=== PATIENT | female | born 1955 | race Caucasian/White ===

== ENCOUNTER → 2024-10-27 10:03 | Outpatient (REF) | payer MEDICARE, BC, SELFPAY | LOC: HWWDC 10:03 | PROVIDERS: ATTENDING PHYSICIAN Nurse Practitioner Women's Health; FAMILY PHYSICIAN Family Medicine | DX: Z12.31 Encounter for screening mammogram for malignant neoplasm of breast (principal) | CPT/HCPCS: 77063; 77067 ==

== ENCOUNTER 2025-02-04 14:15 | Inpatient (IN) | payer MEDICARE, BC, SELFPAY ==
[2025-02-04 09:51] VITALS: BP 155/74
--- NOTE | 2025-02-04 10:55 | ED.GENMED ---
History of Present Illness
General
Chief Complaint: Back Pain
Source: patient
Time Seen by Provider: 02/04/25 10:46
Nursing documentation reviewed up to this point in time: agreed with
History of Present Illness
History of Present Illness:
69-year-old female with history, HLD, HTN presents for left flank pain. She states 2 nights ago it was 'really bad' and vomited twice than it subsided, yesterday the pain came back she put ice on her flank and the pain subsided, during the night
last night pain became worse again and she cannot seem to get rid of it, she took Tylenol this a.m. with no result. She states pain was 9/10, now it is 7/10. She denies fever or chills.
Past History
Past History
ED Past Medical History: HTN, Hypercholesterolemia and Other (Osteoporosis, seasonal allergies)
ED Past Surgical History: Gynecological (Myomectomy) and Orthopedic (Right wrist surgery)
Social History
Tobacco: Non-smoker
Alcohol: Occasional
Drug: None
Personal: Single
Living: alone
Employment: Employed
Family History
Family History: CAD; Negative Early CAD
Review of Systems
Review of Systems
Allergies reviewed?: Yes
All Other Systems: ROS reviewed and negative except as documented in HPI and ROS
Constitutional: Denies fever or chills
Respiratory: Denies trouble breathing
Cardiac: Denies chest pain
ABD/GI: Reports nausea and vomiting; Denies abdominal pain or diarrhea
: Reports flank pain (Left); Denies dysuria, frequency, difficulty voiding or urgency
Musculoskeletal: Reports no symptoms
Skin: Reports no symptoms
Neurological: Reports no symptoms
Phy Exam
Physical Exam
Physical Exam:
GENERAL: Mild distress due to left flank pain. A&Ox3.
CONSTITUTIONAL: Afebrile.
EYES: clear, conjunctivae normal
ENMT: moist mucus membranes, Pharynx nl
RESPIRATORY: Regular respirations, nonlabored, lungs clear.
CARDIOVASCULAR: Regular rate and rhythm, no murmurs, no rubs.
GI: Soft, nontender, normal BS
MUSCULOSKELETAL: Moves with ease. Well perfused.
SKIN: Warm, dry, pink
PSYCH: Anxious mood and affect. Well kept, interactive and appropriate
NEUROLOGIC: Awake, alert and oriented. No focal neurological deficits
Course
Orders/Labs/Results
Orders:
Orders
02/04/25 Breakfast
Regular
At Your Request: Full Participation
02/04/25 10:50
Urinalysis Reflex To Culture Urgent
Date Specimen was Collected: 02/04/25
Time Specimen was Collected: 10:48
Urine Microscopic Reflex Cult Urgent
Urine Culture Urgent
KATE Source: U
Specimen Description:
Date Specimen was Collected: 02/04/25
Time Specimen was Collected: 10:48
02/04/25 10:54
CT Abd/pel Without Iv Or Oral Urgent
Comment:
Reason For Exam: L flank pain
0.9% Sodium Chloride 1000 ml [Nss] 1,000 ml IV BOLUS
Ketorolac [Toradol] 15 mg IV NOW STA
02/04/25 10:56
Ondansetron Injectable [Zofran] 4 mg IV NOW STA
02/04/25 11:29
Complete Blood Count/With Diff Urgent
Comprehensive Metabolic Panel Urgent
02/04/25 12:23
HYDROmorphone [Dilaudid] 1 mg IV NOW STA
02/04/25 13:46
Admit/Transfer Patient As Directed
Co-Sign Provider:
Level of Care: Inpatient admission
Assign to:: Medical/Surgical
Physician / Group: Htay
Diagnosis: Obstructing Kidney Stone
Reason for Hospitalization: IVFs, IV abx, Stone Removal
Expected length of stay greater than two midnights?: Yes
ELOS- Estimated Length of Stay in days: 3
I certify the patient meets the requirements for IP care: Yes
02/04/25 13:48
PRN Pain Medication Management As Directed
May give lesser potent ordered pain med per pt: Yes
preference::
Protocol:: Medication orders for pain may be administered in a
manner that supports deferring to patient preference
when the pt is:
- Requesting an ordered lesser potent pain medication.
Least to most potent pain medications are defined
as: acetaminophen < NSAID < tramadol < opioids
(morphine, oxycodone, hydromorphone).
- Requesting a lesser dose of the same medication IF
ORDERED.
- Requesting a less intrusive route of administration
if both routes are prescribed by the provider (PO <
IV).
02/04/25 13:50
Code Status As Directed
Resuscitation Status: Full Code
02/04/25 15:45
HYDROmorphone [Dilaudid] 0.25 mg IV Q3HPRN PRN
Ondansetron Injectable [Zofran] 4 mg IV Q6HPRN PRN
02/04/25 16:00
CefTRIAXone [Rocephin] 1,000 mg IV Q24H
02/04/25 16:05
0.9% Sodium Chloride 1000 ml [Nss] 1,000 ml IV 80 mls/hr
Acetaminophen [Tylenol] 650 mg PO Q4HPRN PRN
02/04/25 16:05
Activity As Directed
Activity Level: Out of Bed-Early Mobility
With Assistance
I&O [Intake/ Output] As Directed
Frequency: q12h
Nursing to Place Non Medication Order As Directed
Physician Order: Notify Dr. Sierra if patient develops fever (temp >100.5) or chills
Above order entered?: Yes
Pneumatic Compression Sleeves As Directed
Type: Knee high
Vital Signs As Directed
Frequency: Per unit guidelines
Weight As Directed
Frequency: Daily
DX Deep Vein Thrombosis Video Routine
02/04/25 20:00
Topiramate [Topamax] 300 mg PO BID
02/04/25 22:00
Melatonin 5 mg PO HS
Rosuvastatin Calcium [Crestor] 20 mg PO HS
02/05/25 04:15
Basic Metabolic Panel IN AM
Complete Blood Count/No Diff IN AM
02/05/25 08:00
Losartan [Cozaar] 25 mg PO DAILY
Abnormal Lab Results
02/04/25 02/04/25
10:50 11:29
Absolute Neuts (auto) 7.8 H 10^3/uL
(1.4-6.5)
Neutrophils % 78.3 H %
(42.2-75.2)
Lymphocytes % 14.7 L %
(20.5-51.1)
Chloride 108 H mmol/L
(98-107)
BUN 21 H mg/dl
(7-17)
Creatinine 1.1 H mg/dL
(0.6-1.0)
Ur Occult Blood Reflex 4+ A
(Negative)
Leukocyte Esterase Rfl 1+ A
(Negative)
Urine RBC 7-10 A /HPF
(0-2)
Urine Bacteria (Reflex) Few A
(Negative)
Urine Albumin (Reflex) 1+ A
(Neg - Trace)
02/04/25 11:29
02/04/25 11:29
Vital Signs
Initial and Last Documented VS:
Initial Vital Signs
Temp Pulse Resp BP Pulse Ox
98.2 F 93 16 155/74 98
02/04/25 09:51 02/04/25 09:51 02/04/25 09:51 02/04/25 09:51 02/04/25 09:51
Last Documented Vital Signs
Temp Pulse Resp BP Pulse Ox
98.4 F 86 17 145/74 95
02/05/25 15:00 02/05/25 15:00 02/05/25 15:00 02/05/25 15:00 02/05/25 15:00
MDM/Problems Addressed
Differential Diagnosis Includes:
Kidney stone, UTI, pyelonephritis
MDM/Problems Addressed:
69-year-old female with history, HLD, HTN presents for left flank pain. She states 2 nights ago it was 'really bad' and vomited twice than it subsided, yesterday the pain came back she put ice on her flank and the pain subsided, during the night
last night pain became worse again and she cannot seem to get rid of it, she took Tylenol this a.m. with no result. She states pain was 9/10, now it is 7/10. She denies fever or chills.
CBC normal
CMP unremarkable
UA: 4+ occult blood, +1 leukocyte Estrace, 7-10 RBCs, no WBCs
CT abdomen pelvis without IV or oral contrast radiology report read: IMPRESSION:
7.3 mm calculus at the left ureteropelvic junction with mild to moderate obstructive uropathy.
Nonobstructing 1 mm lower pole right renal calculus.
Diverticulosis without acute diverticulitis.
12:30 PM:
Consulted Dr. Sierra, urology who request patient be admitted to hospitalist to have the stone removed tomorrow.
He will be in to sign her up for OR
12:45 PM:
Dr. Sierra in, explained procedure to patient, all questions answered, OR consent signed
*Critical Care Note
Total Time (30-74mins, 75-104mins- exclusive of procedures): Not Applicable
ED Attending Note
-
Portions of this chart may have been created with voice recognition software.� Occasional wrong word or��sound alike� substitutions may have occurred due to the inherent limitations of voice recognition software.
Discharge Plan
Departure
Patient Disposition: Admit
Date of Disposition: 02/04/25
Time of Disposition: 13:02
Admit to: Med/Surg
Presentation/result/management discussed w/ accepting MD/DO: Hospitalist
Condition: Fair
Discharge Problem:
Ureteropelvic junction (UPJ) obstruction, left
Interventions
Interventions:
*Risk Screen - Suicide Last Done: 02/04/25 09:51
*General Assessment Last Done: 02/04/25 11:41
*Neglect/Abuse Screening Last Done: 02/04/25 09:51
*ED- Fall Risk Assessment Last Done: 02/04/25 11:41
*ED COVID-19 Vaccine History Last Done: 02/04/25 11:41
*Nursing Disposition Last Done: 02/04/25 15:57
ED-Musculoskeletal Assessment Last Done: 02/04/25 11:42
Discharge Date and Time
Discharge Date/Time: 02/04/25 16:03
[2025-02-04 11:09] LABS: Urine Albumin 1+ (Neg - Trace); Urine Bilirubin Negative (Negative); Urine Character Clear (Clear); Urine Color Yellow; Urine Glucose Negative (Negative); Urine Ketone Negative (Negative); Urine Leukocyte 1+ (Negative); Urine Nitrite Negative (Negative); Urine Occult Blood 4+ (Negative); Urine Urobilinogen Negative (Neg - 1+)
[2025-02-04 11:35] LABS: Urine Squamous Cell 16-20 /LPF (Few)
[2025-02-04 11:37] LABS: Urine Bacteria Few (Negative)
[2025-02-04] MEDS: TORADOL 15 MG IV (11:39)
[2025-02-04] MEDS: NSS 1000 IV ×2 (11:39→16:50)
[2025-02-04] MEDS: ZOFRAN 4 MG IV (11:39)
[2025-02-04 11:40] VITALS: BMI 32.4
[2025-02-04 12:01] LABS: % Basophils 0.6 % (0-2); % Eosinophils 0.7 % (0-6); % Immature Granulocytes 0.3 % (0-0.5); % Lymphocytes 14.7 % (20.5-51.1); % Monocytes 5.4 % (1.7-9.3); % Neutrophils 78.3 % (42.2-75.2); Absolute Basophils 0.1 10^3/uL (0-0.2); Absolute Eosinophils 0.1 10^3/uL (0-0.7); Absolute Lymphocytes 1.5 10^3/uL (1.2-3.4); Absolute Monocytes 0.5 10^3/uL (0.1-0.6); Absolute Neutrophils 7.8 10^3/uL (1.4-6.5); Hematocrit 46.9 % (37.0-47.0); Hemoglobin 15.8 g/dL (12.0-16.0); Mean Corp Hgb Conc. 33.7 g/dL (33.0-37.0); Mean Corpuscular Hgb 29.5 pg (27.0-31.0); Mean Corpuscular Volume 87.7 fL (81.0-99.0); Mean Platelet Volume 9.9 fL (7.4-10.4); Nucleated Red Blood Cells % 0 %; Platelet Count 294 10^3/uL (130-400); Red Blood Cell Count 5.35 10^6/uL (4.20-5.40); Red Cell Dist. Width 12.2 % (11.5-14.5); White Blood Cell Count 9.9 10^3/uL (4.8-10.8)
[2025-02-04 12:10] LABS: ALT (SGPT) 15 U/L (0-35); AST (SGOT) 18 U/L (14-36); Albumin 4.2 g/dl (3.5-5.0); Alkaline Phosphatase 83 U/L (38-126); Blood Urea Nitrogen 21 mg/dl (7-17); Calcium 9.5 mg/dl (8.4-10.2); Carbon Dioxide 23 mmol/L (22-30); Chloride 108 mmol/L (98-107); Estimated Creatinine Clearance 53 ml/min; Glucose 96 mg/dl (70-99); Potassium 4.2 mmol/L (3.5-5.1); Sodium 141 mmol/L (135-145); Total Bilirubin 0.6 mg/dl (0.2-1.3); eGFR 54.39
[2025-02-04] MEDS: DILAUDID 1 MG IV (12:34)
--- NOTE | 2025-02-04 13:04 | W.PN.URO.CBU ---
Today's Communication / Plan
-
npo post hs call if fever chills temp over 100.5 no lovenox
Assessment / Plan
-
7mm stone intractable pain admit iv anagesics to op room am npo post hs
Diagnosis
-
Date of Service: February 04, 2025
-
Patient Diagnosis:left upj stone with obstruction intractable cinda
Post Op Day:
Subjective
-
nuasea sever left renalcolic no fever nor chills
Objective
-
Vital Signs
Temp Pulse Resp BP Pulse Ox
98.2 F 93 16 155/74 98
02/04/25 09:51 02/04/25 09:51 02/04/25 09:51 02/04/25 09:51 02/04/25 09:51
Laboratory Results
02/04/25 11:29
02/04/25 11:29
Review of Systems
-
Abdomen/GI: Abdominal Pain and Nausea
: Flank Pain
Physical Exam
-
General - well developed, well nourished, no acute distresspain but non toxic
Chest - clear bilaterally
Abdomen - soft, non-tender, positive bowel sounds, left CVAT, no incisional pain or distention
Genitalia - normal
Rectal - normal
Skin - warm & dry with no rash
Neuro - AOx3, no motor deficits
Extremities - no clubbing, no cyanosis, no edema
Incision - clean, dry
Dressing - clean, dry, intact
Care Review
Data Reviewed
Discussed with: Nursing
CT Scan: Image Pers Reviewed
[2025-02-04 13:29] VITALS: BP 131/67
--- NOTE | 2025-02-04 13:54 | HPS.HSE ---
Family Physician
-
Family Physician: Sridevi Drummond
Chief Complaint
-
Left Flank Pain
History of Present Illness
Patient is a 69 y/o female past medical history of hypertension, hyperlipidemia, CKD and migraine headaches who presents with left flank pain. Patient reports pain started two nights ago and was associated with vomiting. Pain subsided but then
reoccurred last night but did not go away despite taking Tylenol prompting her to come to the emergency department for evaluation. She denies fevers, sweats or chills. She denies prior history of kidney stones
Medical History
Past Medical History
Past Medical History: Reports Other
Additional Past Medical History:
Essential Hypertension
Hyperlipidemia
CKD Stage IIIA
Migraine Headache
Past Surgical History: Reports Other
Additional Past Surgical History:
Myomectomy
Right Wrist Surgery
Social History
Tobacco: Non-smoker
Alcohol: Occasional
Family History
Family History: Not pertinent
Allergies / Home Medications
Allergies reflects when Allergies were last updated in [facility].
Home Medications with original date entered in [employer]
Allergy/Medication List:
Allergies
Allergy/AdvReac Type Severity Reaction Status Date / Time
metronidazole Allergy Rash Verified 02/04/25 09:51
Sulfa (Sulfonamide Allergy Swelling Verified 02/04/25 09:51
Antibiotics)
valacyclovir HCl Allergy Swelling Verified 02/04/25 09:51
[From Valtrex]
Home Medications
topiramate 100 mg tablet 100 mg PO BID 06/26/10
calcium carbonate (Calcium 600) 600 mg PO DAILY 07/25/22
diphenhydramine 25 mg-acetaminophen 500 mg tablet (Tylenol PM Extra Strength) 1 tab PO HS sleep 07/25/22
diphenhydramine HCl 25 mg capsule (Benadryl) 25 mg PO DAILY 07/25/22
rosuvastatin 20 mg tablet 20 mg PO HS 07/25/22
galcanezumab-gnlm 120 mg/mL subcutaneous pen injector (Emgality Pen) 120 mg SC QMONTH 02/04/25
losartan 25 mg tablet 25 mg PO DAILY 02/04/25
topiramate 200 mg tablet 200 mg PO BID 02/04/25
Review of Systems
-
A 12 point ROS was completed and negative except as noted: Yes
Constitutional: Denies Fever or Chills
Respiratory: Denies Cough or Trouble Breathing
Cardiac: Denies Chest Pain or Palpitations
Physical Exam
Vital Signs
Vital Signs
Temp Pulse Resp BP Pulse Ox
98.2 F 57 16 131/67 98
02/04/25 09:51 02/04/25 13:29 02/04/25 09:51 02/04/25 13:29 02/04/25 09:51
Physical Exam
General: Comfortable (Following Toradol and Dilaudid given in ED) and Conversant
HEENT: Anicteric and Moist mucous membranes
Respiratory: Clear and Non Labored Respirations
Cardiac: S1/S2 and Regular Rhythm
GI: Soft and Non Tender
Rectal: Deferred by Provider
Genito-urinary: Other (Left Flank Pain)
Musculoskeletal: No Clubbing, No Cyanosis and No Edema
Skin: Warm and Dry
Neuro: Awake, Alert, Oriented and Nonfocal/grossly intact
Psych: Calm
Laboratory Results
-
02/04/25 11:29
02/04/25 11:29
Laboratory Results
Total Bilirubin 0.6 mg/dl (0.2-1.3) 02/04/25 11:29
AST 18 U/L (14-36) 02/04/25 11:29
ALT 15 U/L (0-35) 02/04/25 11:29
Alkaline Phosphatase 83 U/L (38-126) 02/04/25 11:29
Abd/Pelvis CT Scan:
7.3 mm calculus at the left ureteropelvic junction with mild to moderate obstructive uropathy.
Data Reviewed
-
CT Scan: Report Reviewed by me
Lab Data: Labs Reviewed by me
Impression/Plan
-
Obstructing Left UPJ Stone
-Consult Urology
-NPO after midnight for OR in AM
-Continue IVFs
-Continue Dilaudid prn pain
-Continue ceftriaxone
Essential Hypertension
-Continue losartan with hold parameters
Hyperlipidemia
-Continue rosuvastatin
CKD Stage IIIA
-Creatinine at baseline
Migraine Headache
-Continue topiramate
DVT proph: SCDs
Code Status: Full Code
[2025-02-04] MEDS: ROCEPHIN 1000 MG IV (15:07)
[2025-02-04] MEDS: STERILE WATER FOR INJECTION 10 ML IV (15:07)
--- NOTE | 2025-02-04 15:37 | CM ---
Patient seen at bedside in ED. Patient stated that she lives alone in a one story home with no steps to enter. Patient PCP is Dr. Drummond and she uses the [facility] in [place]. Patient stated that she has not had any VN in the past and her plan is
for discharge home with no needs if possible. CM will continue to follow for discharge planning needs.
Plan; home with no needs anticipated.
[2025-02-04] MEDS: DILAUDID 0.25 MG IV ×3 (15:50→22:13)
[2025-02-04 16:13] VITALS: BMI 33.6
[2025-02-04 16:15] VITALS: BP 161/74
--- NOTE | 2025-02-04 18:15 | W.PN.UPDATE ---
Update Note
Progress Note Update
This note serves as an addendum to the H&P by auxiliary power equipment operator ANA
[place] DIETERICK
HPI
69F HX hypertension, hyperlipidemia, CKD and migraine headaches seen at ER for left flank pain started two nights ago and was associated with vomiting. Pain subsided but then reoccurred last night but did not go away despite taking Tylenol
prompting her to come to the emergency department for evaluation.
ROS:
denies fevers, sweats or chills. She denies prior history of kidney stones
Vital Signs
Temp Pulse Resp BP Pulse Ox
97.4 F 62 18 161/74 99
02/04/25 16:15 02/04/25 16:15 02/04/25 16:15 02/04/25 16:15 02/04/25 16:15
PE
Gen: Not toxic
HEENT:anicteric
Neck: supple
Lungs: CTA
Cor: RRR S1 S2
Abdomen: soft, non-tender, positive bowel sounds, left CVAT, no incisional pain or distention
TAX TECHNICIAN: AAO3 NFND
MS: no edema
Psych: calm
Data
CT AP Without Iv Or Oral
- 7.3 mm calculus at the left ureteropelvic junction with mild to moderate obstructive uropathy.
- Nonobstructing 1 mm lower pole right renal calculus.
- Diverticulosis without acute diverticulitis.
ASSESSMENT & PLAN
7mm obstructing at Left UPJ Stone
- NPO after midnight for OR in AM
- IV NS
- PRN Dilaudid analgesia
- agree with empiric ceftriaxone
- Urology consulted
Essential HTN
- c/w INTERACTIVE MEDIA SPECIALIST losartan with hold parameters
Hyperlipidemia
- c/w INTERACTIVE MEDIA SPECIALIST rosuvastatin
CKD 3A
-Cr baseline
Migraine Headache
- 0n topiramate
DVT Prx : SCDs
Full Code
IP MS
[2025-02-04] MEDS: TOPAMAX 300 MG PO (20:53)
[2025-02-04] MEDS: MELATONIN 5 MG PO (20:56)
[2025-02-04] MEDS: CRESTOR 20 MG PO (20:56)
[2025-02-05] VITALS (10 sets, daily range): BP systolic 113–157; BP diastolic 66–82; BMI 34.1
[2025-02-05] MEDS: NSS 1000 IV (02:42)
[2025-02-05] MEDS: DILAUDID 0.25 MG IV ×2 (02:43→06:06)
[2025-02-05 05:34] LABS: Hematocrit 40.2 % (37.0-47.0); Hemoglobin 13.6 g/dL (12.0-16.0); Mean Corp Hgb Conc. 33.8 g/dL (33.0-37.0); Mean Corpuscular Hgb 29.4 pg (27.0-31.0); Mean Platelet Volume 10.2 fL (7.4-10.4); Platelet Count 247 10^3/uL (130-400); Red Blood Cell Count 4.62 10^6/uL (4.20-5.40); Red Cell Dist. Width 12.1 % (11.5-14.5); White Blood Cell Count 7.2 10^3/uL (4.8-10.8)
[2025-02-05 05:54] LABS: Blood Urea Nitrogen 19 mg/dl (7-17); Calcium 8.6 mg/dl (8.4-10.2); Carbon Dioxide 18 mmol/L (22-30); Chloride 109 mmol/L (98-107); Estimated Creatinine Clearance 59 ml/min; Glucose 92 mg/dl (70-99); Sodium 139 mmol/L (135-145); eGFR > 60.00
[2025-02-05] MEDS: TOPAMAX PO (09:35)
--- NOTE | 2025-02-05 10:25 | W.PN.HOSP.TC ---
Today's Communication/Plan
-
Monitor vital signs see plan
Status post JJ stent, feeling better
Discharge today
Switch antibiotics to p.o. cefdinir
Assessment / Plan
Assessment / Plan
General: Comfortable and Conversant
HEENT: Anicteric and Moist mucous membranes
Respiratory: Clear and Non Labored Respirations
Cardiac: S1/S2 and Regular Rhythm
GI: Soft and Non Tender
Genito-urinary: Left flank pain better
Musculoskeletal: No Edema
Neuro: Awake, Alert, Oriented and Nonfocal/grossly intact
Psych: Calm
Obstructing Left UPJ Stone
Urology following
Status post left JJ stent
-Continue IVFs
Pain now improving, patient reports she does not need any pain medications at this time
Advised her not to take much calcium and to follow-up with PCP and gynecology outpatient for different medication for her osteoporosis
Switch antibiotics to p.o. cefdinir
Urine culture contaminant
Patient will follow-up with urology outpatient for stent removal
Essential Hypertension
-Continue losartan with hold parameters
Hyperlipidemia
-Continue rosuvastatin
CKD Stage IIIA
-Creatinine at baseline
Migraine Headache
-Continue topiramate
DVT proph: SCDs
Code Status: Full Code
Anticipated Discharge: Today
Subjective/Interval History
-
Date of Service: February 05, 2025
denies pain
Objective Data
-
Labs:
Laboratory Results
02/05/25
04:15
WBC 7.2
Hgb 13.6
Hct 40.2
Plt Count 247
Sodium 139
Potassium 4.0
Chloride 109 H
Carbon Dioxide 18 L
BUN 19 H
Creatinine 1.0
Glucose 92
Calcium 8.6
Vital Signs:
Vital Signs
Temp Pulse Resp BP Pulse Ox
98.5 F 80 18 140/69 92
02/05/25 07:03 02/05/25 07:03 02/05/25 07:03 02/05/25 07:03 02/05/25 07:03
I&O
02/04/25 02/05/25 02/06/25
06:59 06:59 06:59
Intake Total 1859
Balance 1859
--- NOTE | 2025-02-05 11:03 | W.SUR.POST ---
Surgical Immediate Post Op
Note
Pre Op Diagnosis: 10 mm l;eft upj stone with obstruction
Post Op Diagnosis: same
Procedure Performed: left u/l/s basket extraction
Primary Surgeon: marizol
Secondary Surgeons:
Anesthesia: general dr corley
Estimated Blood Loss:2cc
Fluids: nss
Drains/Shunts: 6 fr 24 cm left jj stent
Specimens/Cultures: stones
Doppler/Duplex/Angio (Y/N):
Complications: 0
Operative Findingslg stone imopacting left upj:
[2025-02-05] MEDS: COZAAR 25 MG PO (12:07)
[2025-02-05] MEDS: Pyridium 200 MG PO (12:08)
--- NOTE | 2025-02-05 13:23 | W.DCSUMMARY ---
Discharge Summary
Discharge Data
Date of Admission: 02/04/25
Date of Discharge: 02/05/25
-
Pending Results: Yes
Hospital Course
69-year-old female with past medical history of osteoporosis, migraine headache, CKD, hyperlipidemia, essential hypertension came to the hospital with left flank pain with obstructing left UPJ stone. Patient was seen by urology throughout
hospitalization and was taken to the OR with patient had left JJ stent. Post stent patient's symptoms continue to improve and she had no pain prior to the discharge. Urine culture was contaminant however given patient's symptoms urology
recommended oral antibiotics on discharge. Patient antibiotics was then transition to p.o. cefdinir to complete the course. Once patient symptoms continue to improve, she was then discharged home with instructions to follow-up with PCP and urology
outpatient.
Discharge Plan
-
Patient Disposition: Home (Routine Discharge)
Discharge Diagnosis/Procedures: Obstructing left UPJ stone status post stent placement
Diet: As tolerated
Activity: As tolerated
Driving Restrictions: As prior to admission
Bathing Restrictions: None
Referrals:
Cecil Sierra MD [Active] - (you have a stent Expect frequency urgency blood and left sided pressure on urination call if fever chills Dr Sierra [phone] [id number] if qiestions and ext 5 to sey=t up apt fr stent removal in office)
Sridevi Drummond, [Family Provider] - in less than 1 week
Prescriptions:
New
cefdinir 300 mg capsule
300 mg PO BID Qty: 10 0RF
Lactobacillus acidophilus 10 billion cell capsule
10,000 mmu cells PO DAILY Qty: 7 0RF
Continued
topiramate 100 MG tablet
100 mg PO BID
Rx Instructions:
take with 200mg for total of 300mg
diphenhydramine HCl [Benadryl] 25 mg Capsule
25 mg PO DAILY
diphenhydramine-acetaminophen [Tylenol PM Extra Strength] 25-500 mg Tablet
1 tab PO HS
rosuvastatin 20 mg Tablet
20 mg PO HS
losartan 25 mg Tablet
25 mg PO DAILY
topiramate 200 mg Tablet
200 mg PO BID
Rx Instructions:
take with 100mg for total of 300mg
Emgality Pen 120 mg/mL Pen Injector
120 mg SC QMONTH
Discontinued
calcium carbonate [Calcium 600] 600 mg calcium (1,500 mg) Tablet
600 mg PO DAILY
Discharge Orders:
Discharge Patient (As Directed); Ordered 02/05/25
Ordered By: Luis London
Discharge Date and Time
Discharge Date/Time: 02/05/25 17:00
Print Language: GABONESE
[2025-02-05] MEDS: ROCEPHIN 1000 MG IV (15:57)
[2025-02-05] MEDS: STERILE WATER FOR INJECTION 10 ML IV (15:57)
[2025-02-07 23:02] LABS: Stone Analysis Mass 2 mg
== END 2025-02-05 17:00 | disposition home or self-care (01) | DRG 661 ==
LOC: 2 SOUTH 14:15
PROVIDERS: Physician Assistant Medical; Registered Nurse; ADMITTING PHYSICIAN Internal Medicine; ATTENDING PHYSICIAN Internal Medicine; EMERGENCY PHYSICIAN Emergency Medicine; FAMILY PHYSICIAN Family Medicine; OTHER PHYSICIAN Specialist
PROC: 0TC44ZZ Extirpation of Matter from Left Kidney Pelvis, Percutaneous Endoscopic Approach (ICD-10-PCS; 2025-02-05)
PROC: 0T778DZ Dilation of Left Ureter with Intraluminal Device, Via Natural or Artificial Opening Endoscopic (ICD-10-PCS; 2025-02-05)
DX: N20.1 Calculus of ureter (principal); I12.9 Hypertensive chronic kidney disease with stage 1 through stage 4 chronic kidney disease, or unspecified chronic kidney disease; N18.31 Chronic kidney disease, stage 3a; E78.00 Pure hypercholesterolemia, unspecified; G43.909 Migraine, unspecified, not intractable, without status migrainosus; M81.0 Age-related osteoporosis without current pathological fracture; Z88.1 Allergy status to other antibiotic agents; Z88.2 Allergy status to sulfonamides; Z79.899 Other long term (current) drug therapy
CPT/HCPCS: 74018; 74176; 76000; 80048; 80053; 81003; 81015; 82365; 85025; 85027; 87086; 96361; 96374; 96375; 99284; A4300; C1894; C2617

== ENCOUNTER → 2025-11-08 13:50 | Outpatient (REF) | payer MEDICARE, BC, SELFPAY | LOC: HWRAD 13:50 | PROVIDERS: ATTENDING PHYSICIAN Family Medicine | DX: Z12.31 Encounter for screening mammogram for malignant neoplasm of breast (principal); M85.80 Other specified disorders of bone density and structure, unspecified site; M81.0 Age-related osteoporosis without current pathological fracture | CPT/HCPCS: 77063; 77067 ==